=== PATIENT | male | born 1955 | race Caucasian/White ===

== ENCOUNTER 2021-03-25 10:16 | Emergency (ER) | payer MEDICARE, OTHER ==
[2021-03-25] MEDS: Nitroglycerin 0.4 MG Tab.SL SL ONE ×3 (10:30→10:49)
[2021-03-25] MEDS ORDERED: Sodium Chloride 0.9% 10 ML Syringe FLUSH PRN (10:33)
[2021-03-25] MEDS ORDERED: Aspirin 81 MG Tab.Chew PO ONE (10:33)
--- NOTE | 2021-03-25 10:41 | EDM.PDOC ---
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 The nurse brought him to the ER. He reports that the chest pain started last night and has continued on and off. He now rates it a 8/10 and reports that it goes into the the left arm and left side of his chest. He also reports weighing himself last night and it being 201# and then this AM it was 206#. He did take Lasix and has bee voiding. Review of Systems - Review of Systems Review Of Systems: See Below Constitutional: Reports: No Symptoms Eyes: Reports: No Symptoms Ears: Reports: No Symptoms Nose: Reports: No Symptoms Mouth/Throat: Reports: No Symptoms Respiratory: Reports: Shortness of Breath Cardiovascular: Reports: Chest Pain GI/Abdominal: Reports: Nausea Genitourinary: Reports: No Symptoms Musculoskeletal: Reports: No Symptoms Skin: Reports: Diaphoresis Neurological: Reports: No Symptoms Psychiatric: Reports: No Symptoms ED EXAM, GENERAL - Physical Exam Exam: See Below General Appearance: Alert, WD/WN, No Apparent Distress (Elderly male) Eye Exam: Bilateral Eye: PERRL Ears: Normal External Exam, Hearing Grossly Normal Nose: Normal Inspection, Normal Mucosa Throat/Mouth: Normal Inspection, Normal Lips, Normal Voice Head: Atraumatic, Normocephalic Neck: Normal Inspection, Supple Respiratory/Chest: No Respiratory Distress, Lungs Clear, Chest Non-Tender Cardiovascular: Normal Peripheral Pulses, Regular Rate, Rhythm GI/Abdominal: Normal Bowel Sounds, Soft, Non-Tender (Male) Exam: Deferred Rectal (Males) Exam: Deferred Back Exam: Normal Inspection Extremities: Normal Inspection, Normal Range of Motion, No Pedal Edema, Normal Capillary Refill Neurological: Alert, Oriented, CN II-XII Intact, Normal Cognition Psychiatric: Normal Affect Skin Exam: Warm, Intact, Normal Color, Diaphoretic Lymphatic: No Adenopathy #1 Interpretation EKG Date: 03/25/21 Time: 10:16 Rhythm: NSR Rate (Beats/Min): 98 [place]: Normal P-Wave: Present QRS: Normal ST-T: Normal QT: Normal Comparison: NA - No Prior EKG EKG Interpretation Comments: Minimal ST elevation in V2,V3, no depression Course - Vital Signs Text/Narrative:: 1029 The patient was seen by the SUB MASTER. EKG done. He was given Nitro 0.4mg SL and ASA 324mg po. Labs and CXR ordered. 1115 Has now had 3 doses of Nitro SL and pain is returning to about a level 4. Morphine 1mg IVP given. Nitro gtt ordered. 1116 [facility] contacted and case presented. Dr Beckwith in the ER accepted the patient for transport. Nitro gtt and Heparin gtts started. Plan [facility] to transfer to [place]. Patient reporting 2-3 pain at this time, attempting to get him comfortable with Nitro gtt and Morphine Left with [facility] in stable but guarded condition. Last Recorded V/S: Last Vital Signs Temp Pulse Resp BP 117/76 03/25/21 10:49 Pulse Ox - Orders/Labs/Meds Orders: Active Orders 24 hr Category Date Time Status EKG Documentation Completion [RC] STAT Care 03/25/21 10:32 Active PTT,PARTIAL THROMBOPLSTIN TIME [COAG] Q6H Lab 03/25/21 11:30 Ordered PTT,PARTIAL THROMBOPLSTIN TIME [COAG] Q6H Lab 03/25/21 17:30 Ordered PTT,PARTIAL THROMBOPLSTIN TIME [COAG] Q6H Lab 03/25/21 23:30 Ordered PTT,PARTIAL THROMBOPLSTIN TIME [COAG] Q6H Lab 03/26/21 05:30 Ordered PTT,PARTIAL THROMBOPLSTIN TIME [COAG] Q6H Lab 03/26/21 11:30 Ordered PTT,PARTIAL THROMBOPLSTIN TIME [COAG] Q6H Lab 03/26/21 17:30 Ordered PTT,PARTIAL THROMBOPLSTIN TIME [COAG] Q6H Lab 03/26/21 23:30 Ordered REFLEX LACTIC ACID YES OR NO [CHEM] Routine Lab 03/25/21 11:07 Received UA RFX MOLLY AND CULT IF INDIC [URIN] Stat Lab 03/25/21 10:33 Ordered Heparin Sodium/0.45% NaCl [Heparin 25,000 Units in 1/2 Med 03/25/21 11:30 Ordered NS 500 ML] 25,000 units in 500 ml IV TITRATE Nitroglycerin 25 MG in D5W @ 10 MCG/MIN (250ml) Premix Med 03/25/21 11:45 Ordered Nitroglycerin/D5W [Nitroglycerin 25 MG/D5W 250 ML] 25 mg in 250 ml IV TITRATE Sodium Chloride 0.9% [Saline Flush] Med 03/25/21 10:33 Active 10 ml FLUSH ASDIRECTED PRN Saline Lock Insert [OM.PC] Stat Oth 03/25/21 10:32 Ordered Medication Orders Heparin Sodium/Sodium Chloride (Heparin 25,000 Units In 1/2 Ns 500 Ml) 25,000 units in 500 mls @ 100 mls/hr IV TITRATE NICK; Protocol Last Admin: 03/25/21 11:38 Dose: 5,000 units/hr, 100 mls/hr Documented by: Nitroglycerin/Dextrose (Nitroglycerin 25 Mg/D5w 250 Ml) 25 mg in 250 mls @ 6 mls/hr IV TITRATE NICK; Protocol Sodium Chloride (Sodium Chloride 0.9% 10 Ml Syringe) 10 ml FLUSH ASDIRECTED PRN PRN Reason: Keep Vein Open Labs: Laboratory Tests 03/25/21 03/25/21 03/25/21 Range/Units 10:39 10:39 10:39 WBC 5.4 (4.0-10.0) x10^3/uL RBC 4.55 (4.5-6.0) x10^6/uL Hgb 14.4 (14.0-18.0) g/dL Hct 40.4 (40.0-52.0) % MCV 88.8 (78.0-93.0) fL MCH 31.6 (26.0-32.0) pg MCHC 35.6 (32.0-36.0) g/dL RDW Coeff of Barry 13.0 (10.0-15.0) % Plt Count 199 (130-400) x10^3/uL Neut % (Auto) 58.3 (50.0-80.0) % Lymph % (Auto) 26.5 (25.0-50.0) % [place] % (Auto) 11.2 H (2.0-11.0) % Eos % (Auto) 3.6 (0.0-4.0) % Baso % (Auto) 0.4 (0.2-1.2) % PT 11.0 (9.9-12.5) SEC INR 1.0 L (2.0-3.5) APTT 26.3 (25.6-32.8) SEC D-Dimer, Quantitative (<=0.58) mg/LFEU Sodium 135 L (136-145) mmol/L Potassium 3.9 (3.5-5.1) mmol/L Chloride 100 (98-107) mmol/L Carbon Dioxide 24 (21-32) mmol/L Anion Gap 14.9 (5-15) mmol/L BUN 18 (7-18) mg/dL Creatinine 1.2 (0.70-1.30) mg/dL Est Cr Clr Drug Dosing TNP Estimated GFR (MDRD) > 60 Glucose 232 H (70-99) mg/dL Lactic Acid (0.4-2.0) mmol/L Calcium 8.6 (8.5-10.1) mg/dL Corrected Calcium 8.8 (8.5-10.1) mg/dL Total Bilirubin 0.5 (0.2-1.0) mg/dL AST 65 H (15-37) U/L ALT 64 H (16-63) U/L Alkaline Phosphatase 131 H (46-116) U/L Troponin I High Sens 131 H* (<=76) ng/L C-Reactive Protein < 0.2 (<=0.9) mg/dL NT-Pro-B Natriuret Pep 186 H (<=125) pg/mL Total Protein 8.0 (6.4-8.2) g/dL Albumin 3.7 (3.4-5.0) g/dL Globulin 4.3 Albumin/Globulin Ratio 0.86 03/25/21 03/25/21 Range/Units 10:39 10:39 WBC (4.0-10.0) x10^3/uL RBC (4.5-6.0) x10^6/uL Hgb (14.0-18.0) g/dL Hct (40.0-52.0) % MCV (78.0-93.0) fL MCH (26.0-32.0) pg MCHC (32.0-36.0) g/dL RDW Coeff of [place] (10.0-15.0) % Plt Count (130-400) x10^3/uL Neut % (Auto) (50.0-80.0) % Lymph % (Auto) (25.0-50.0) % [place] % (Auto) (2.0-11.0) % Eos % (Auto) (0.0-4.0) % Baso % (Auto) (0.2-1.2) % PT (9.9-12.5) SEC INR (2.0-3.5) APTT (25.6-32.8) SEC D-Dimer, Quantitative 0.35 (<=0.58) mg/LFEU Sodium (136-145) mmol/L Potassium (3.5-5.1) mmol/L Chloride (98-107) mmol/L Carbon Dioxide (21-32) mmol/L Anion Gap (5-15) mmol/L BUN (7-18) mg/dL Creatinine (0.70-1.30) mg/dL Est Cr Clr Drug Dosing Estimated GFR (MDRD) Glucose (70-99) mg/dL Lactic Acid 3.9 H* (0.4-2.0) mmol/L Calcium (8.5-10.1) mg/dL Corrected Calcium (8.5-10.1) mg/dL Total Bilirubin (0.2-1.0) mg/dL AST (15-37) U/L ALT (16-63) U/L Alkaline Phosphatase (46-116) U/L Troponin I High Sens (<=76) ng/L C-Reactive Protein (<=0.9) mg/dL NT-Pro-B Natriuret Pep (<=125) pg/mL Total Protein (6.4-8.2) g/dL Albumin (3.4-5.0) g/dL Globulin Albumin/Globulin Ratio Meds: Medications Generic Name Dose Route Start Last Admin Trade Name Freq PRN Reason Stop Dose Admin Heparin Sodium/Sodium Chloride 25,000 units in 500 mls @ 100 mls/hr 03/25/21 11:30 03/25/21 11:38 Heparin 25,000 Units In 1/2 Ns 500 Ml IV 5,000 units/hr TITRATE NICK 100 mls/hr Administration Protocol 5,000 UNITS/HR Nitroglycerin/Dextrose 25 mg in 250 mls @ 6 mls/hr 03/25/21 11:45 Nitroglycerin 25 Mg/D5w 250 Ml IV TITRATE NICK Protocol 10 MCG/MIN Sodium Chloride 10 ml 03/25/21 10:33 Sodium Chloride 0.9% 10 Ml Syringe FLUSH ASDIRECTED PRN Keep Vein Open Discontinued Medications Generic Name Dose Route Start Last Admin Trade Name Freq PRN Reason Stop Dose Admin Aspirin 324 mg 03/25/21 10:33 03/25/21 10:29 Aspirin 81 Mg Tab.Chew PO 03/25/21 10:34 324 mg ONETIME ONE Administration Heparin Sodium (Porcine) 5,000 units 03/25/21 11:24 03/25/21 11:37 Heparin Sodium 5,000 Units/Ml Vial IVPUSH 03/25/21 11:25 5,000 units .BOLUS ONE Administration Sodium Chloride 500 mls @ 999 mls/hr 03/25/21 11:02 03/25/21 11:15 Normal Saline IV 03/25/21 11:32 999 mls/hr ONETIME ONE Administration Morphine Sulfate 1 mg 03/25/21 11:06 03/25/21 11:12 Morphine 2 Mg/Ml Syringe IVPUSH 03/25/21 11:07 1 mg ONETIME ONE Administration Nitroglycerin 0.4 mg 03/25/21 10:33 03/25/21 10:49 Nitroglycerin 0.4 Mg Tab.Sl SL 03/25/21 10:34 0.4 mg ONETIME ONE Administration - Radiology Interpretation Free Text/Narrative:: XR Chest 1V=note cardiomegaly with an AICD (See final report) Departure - Departure Time of Disposition: 11:31 Disposition: DC/Tfer to Acute Hospital 02 Condition: Good Clinical Impression: NSTEMI (non-ST elevated myocardial infarction) Acute [place] Qualifiers: Myocardial infarction type: unspecified Involved coronary artery: unspecified coronary artery Qualified Code(s): I21.9 - Acute myocardial infarction, unspecified CHF (congestive heart failure) Qualifiers: Heart failure type: unspecified Heart failure chronicity: unspecified Qualified Code(s): I50.9 - Heart failure, unspecified Type 2 diabetes mellitus Qualifiers: Diabetes mellitus termite treater helper insulin use: without termite treater helper use Diabetes mellitus complication status: without complication Qualified Code(s): E11.9 - Type 2 diabetes mellitus without complications - Discharge Information Forms: Interfacility Transfer [facility] Sepsis Event Note (ED) - Focused Exam Vital Signs: Vital Signs BP 03/25/21 10:49 117/76 03/25/21 10:41 121/75 03/25/21 10:30 141/92 H - My Orders Last 24 Hours: My Active Orders 03/25/21 10:32 EKG Documentation Completion [RC] STAT Saline Lock Insert [OM.PC] Stat 03/25/21 10:33 UA RFX MOLLY AND CULT IF INDIC [URIN] Stat Sodium Chloride 0.9% [Saline Flush] 10 ml FLUSH ASDIRECTED PRN 03/25/21 11:07 REFLEX LACTIC ACID YES OR NO [CHEM] Routine 03/25/21 11:30 PTT,PARTIAL THROMBOPLSTIN TIME [COAG] Q6H Heparin Sodium/0.45% NaCl [Heparin 25,000 Units in 1/2 NS 500 ML] 25,000 units in 500 ml IV TITRATE 03/25/21 11:45 Nitroglycerin 25 MG in D5W @ 10 MCG/MIN (250ml) Premix Nitroglycerin/D5W [Nitroglycerin 25 MG/D5W 250 ML] 25 mg in 250 ml IV TITRATE 03/25/21 17:30 PTT,PARTIAL THROMBOPLSTIN TIME [COAG] Q6H 03/25/21 23:30 PTT,PARTIAL THROMBOPLSTIN TIME [COAG] Q6H 03/26/21 05:30 PTT,PARTIAL THROMBOPLSTIN TIME [COAG] Q6H 03/26/21 11:30 PTT,PARTIAL THROMBOPLSTIN TIME [COAG] Q6H 03/26/21 17:30 PTT,PARTIAL THROMBOPLSTIN TIME [COAG] Q6H 03/26/21 23:30 PTT,PARTIAL THROMBOPLSTIN TIME [COAG] Q6H - Assessment/Plan Last 24 Hours: My Active Orders 03/25/21 10:32 EKG Documentation Completion [RC] STAT Saline Lock Insert [OM.PC] Stat 03/25/21 10:33 UA RFX MOLLY AND CULT IF INDIC [URIN] Stat Sodium Chloride 0.9% [Saline Flush] 10 ml FLUSH ASDIRECTED PRN 03/25/21 11:07 REFLEX LACTIC ACID YES OR NO [CHEM] Routine 03/25/21 11:30 PTT,PARTIAL THROMBOPLSTIN TIME [COAG] Q6H Heparin Sodium/0.45% NaCl [Heparin 25,000 Units in 1/2 NS 500 ML] 25,000 units in 500 ml IV TITRATE 03/25/21 11:45 Nitroglycerin 25 MG in D5W @ 10 MCG/MIN (250ml) Premix Nitroglycerin/D5W [Nitroglycerin 25 MG/D5W 250 ML] 25 mg in 250 ml IV TITRATE 03/25/21 17:30 PTT,PARTIAL THROMBOPLSTIN TIME [COAG] Q6H 03/25/21 23:30 PTT,PARTIAL THROMBOPLSTIN TIME [COAG] Q6H 03/26/21 05:30 PTT,PARTIAL THROMBOPLSTIN TIME [COAG] Q6H 03/26/21 11:30 PTT,PARTIAL THROMBOPLSTIN TIME [COAG] Q6H 03/26/21 17:30 PTT,PARTIAL THROMBOPLSTIN TIME [COAG] Q6H 03/26/21 23:30 PTT,PARTIAL THROMBOPLSTIN TIME [COAG] Q6H Assessment:: 1)NSTEMI/Acute [place] 2)Chest Pain 3)Hx Type 2 DM 4)Hx CHF Plan: -Transfer to [facility] via [facility]
[2021-03-25] MEDS ORDERED: Sodium Chloride 0.9% 500 ML IV ONE (11:02)
[2021-03-25] MEDS ORDERED: Morphine 2 MG/ML SYRINGE IVPUSH ONE (11:06)
[2021-03-25 11:11] LABS: CHLORIDE,CL 100 mmol/L (98-107); PTT,PARTIAL THROMBOPLSTIN TIME 26.3 SEC (25.6-32.8); SODIUM,NA 135 mmol/L (136-145)
[2021-03-25 11:12] LABS: ANION GAP 14.9 mmol/L (5-15)
--- NOTE | 2021-03-25 11:14 | CR ---
[id number] RAD/RAD Chest PA or AP 1V EXAM: FRONTAL CHEST INDICATION: CHEST PAIN. COMPARISON: June 21, 2010. DISCUSSION: The heart is mildly enlarged with borderline central vascular congestion. Left subclavian approach pacemaker/ICD lead tip right ventricle. No effusions. IMPRESSION: 1. Cardiomegaly with early central vascular congestion. Ulices Miller MD 03/25/21 1111 Thank you for allowing us to participate in the care of your patient.
[2021-03-25] MEDS ORDERED: Heparin Sodium 5,000 Units/ML Vial IVPUSH ONE (11:24)
[2021-03-25] MEDS ORDERED: Heparin Sodium/0.45% NaCl 25,000 UNITS/500 ML BAG IV SCH (11:30)
[2021-03-25] MEDS ORDERED: Nitroglycerin/D5W 25 MG/250 ML BOTTLE IV SCH (11:45)
== END 2021-03-25 11:54 | disposition short-term general hospital (02) ==
LOC: VM.ED 10:16
DX: I21.9 Acute myocardial infarction, unspecified (principal); I21.4 Non-ST elevation (NSTEMI) myocardial infarction; I11.0 Hypertensive heart disease with heart failure; I50.9 Heart failure, unspecified; E11.9 Type 2 diabetes mellitus without complications
CPT/HCPCS: 36415; 71045; 80053; 83605; 83880; 84484; 85025; 85379; 85610; 85730; 86140; 93005; 93010; 96374; 96375; 99284; 99285-25; A9270-GY; J1644; J2270; J3490; J7030

== ENCOUNTER 2021-05-02 07:16 | Emergency (ER) | payer MEDICARE, OTHER ==
[2021-05-02] MEDS ORDERED: Sodium Chloride 0.9% 10 ML Syringe FLUSH PRN (07:29)
[2021-05-02] MEDS ORDERED: Aspirin 81 MG Tab.Chew PO ONE (07:30)
[2021-05-02] MEDS: Nitroglycerin 0.4 MG Tab.SL SL PRN ×2 (07:31→07:52)
--- NOTE | 2021-05-02 07:54 | EDM.PDOC ---
ED HPI GENERAL MEDICAL PROBLEM - General Stated Complaint: CHEST PAIN Time Seen by Provider: 05/02/21 07:20 Source of Information: Reports: Patient History Limitations: Reports: No Limitations - History of Present Illness INITIAL COMMENTS - FREE TEXT/NARRATIVE: Patient comes emergency department today from work which is here at the hospital with concerns of chest pain. Patient has a history of angina coronary vasospasms. He has had multiple angiograms but never received any stents. He has a history of congestive heart failure as well. About a month ago he was seen in the emergency department for very similar symptoms and was sent to [place] had an angiogram where he had a balloon angioplasty but did not have any stents placed. This morning about 3:00 he was awoken at home with chest pains down his left arm. He was short of breath and diaphoretic at that time. He took 1 sublingual nitro and it resolved his pain. He then got in the car and started to drive to work. About 5:[address] work he developed shortness of breath chest pain down his left arm. It is constant. He did take his baby aspirin this morning. He complains of shortness of breath. His pain is there constantly whether he is physically exerting himself or sitting still. He is nauseated without vomiting. Small amount of diaphoresis. No abdominal pain. No hematuria dysuria urinary frequency. No black or tarry stools. Middle Chest Pain Score (Numeric/FACES): 8 - Related Data Allergies Allergy/AdvReac Type Severity Reaction Status Date / Time isosorbide Allergy Headache Verified 05/02/21 09:19 kanamycin Allergy Cannot Verified 05/02/21 09:19 Remember Home Meds: Home Meds Acetaminophen [Acetaminophen ER] 1,300 mg PO Q6H PRN 03/25/21 [History] Aspirin [Halfprin] 81 mg PO DAILY 03/25/21 [History] Doxycycline Monohydrate 100 mg PO BID 03/25/21 [History] Fluticasone Propionate [Flonase Allergy Relief] 2 spray NS DAILY 03/25/21 [History] Furosemide [Lasix] 40 mg PO DAILY 03/25/21 [History] Lactobacill 46/B.animal/Inulin [Probiotic-10 10 Bill Cell Cap] 3 each PO DAILY 03/25/21 [History] Magnesium Chloride [Mag Delay] 128 mg PO DAILY 03/25/21 [History] Multivitamin 1 each PO DAILY 03/25/21 [History] Nitroglycerin 0.4 mg SL ASDIRECTED 03/25/21 [History] Pantoprazole Sodium [Protonix] 40 mg PO DAILY 03/25/21 [History] Sacubitril/Valsartan [Entresto 24 mg-26 mg Tablet] 1 each PO BID 03/25/21 [History] Spironolactone [Aldactone] 25 mg PO DAILY 03/25/21 [History] atorvaSTATin Calcium [Lipitor] 40 mg PO BEDTIME 03/25/21 [History] carvediloL [Coreg] 25 mg PO BID 03/25/21 [History] metFORMIN [Glucophage XR] 750 mg PO BID 03/25/21 [History] Melatonin 10 mg PO BEDTIME 05/02/21 [History] Mirtazapine [Remeron] 15 mg PO DAILY 05/02/21 [History] amLODIPine Besylate [Norvasc] 2.5 mg PO DAILY 05/02/21 [History] Past Medical History HEENT History: Reports: Other (See Below) Other HEENT History: barretts esophagus, Cardiovascular History: Reports: CAD, Cardiomyopathy, Heart Failure, Hyperten jonas Gastrointestinal History: Reports: Other (See Below) Other Gastrointestinal History: barretts esophagus, pharyngoesophageal dysphasia, Musculoskeletal History: Reports: Other (See Below) Other Musculoskeletal History: PTSD Endocrine/Metabolic History: Reports: Diabetes, Type II Social & Family History - Family History Family Medical History: Unobtainable - Caffeine Use Caffeine Use: Reports: None ED ROS GENERAL - Review of Systems Review Of Systems: Comprehensive ROS is negative, except as noted in HPI. ED EXAM, GENERAL - Physical Exam Exam: See Below Exam Limited By: No Limitations General Appearance: Alert, WD/WN, No Apparent Distress Eye Exam: Bilateral Eye: EOMI, PERRL Ears: Normal External Exam, Normal TMs Nose: Normal Inspection Throat/Mouth: Normal Inspection Head: Atraumatic, Normocephalic Neck: Normal Inspection, Supple, Non-Tender, Full Range of Motion Respiratory/Chest: No Respiratory Distress, Lungs Clear, Normal Breath Sounds, No Accessory Muscle Use, Chest Non-Tender Cardiovascular: Normal Peripheral Pulses, Regular Rate, Rhythm GI/Abdominal: Normal Bowel Sounds, Soft, Non-Tender (Male) Exam: Deferred Rectal (Males) Exam: Deferred Back Exam: Normal Inspection, Full Range of Motion Extremities: Normal Inspection, Normal Range of Motion, No Pedal Edema, Normal Capillary Refill Neurological: Alert, Oriented, Normal Cognition, No Motor/Sensory Deficits Psychiatric: Normal Affect, Normal Mood Skin Exam: Warm, Dry, Intact, Normal Color, No Rash Lymphatic: No Adenopathy Course - Vital Signs Last Recorded V/S: Last Vital Signs Temp 98.2 F 05/02/21 07:16 Pulse 85 05/02/21 14:06 Resp 25 H 05/02/21 14:06 BP 119/77 05/02/21 14:06 Pulse Ox 95 05/02/21 14:06 - Orders/Labs/Meds Orders: Active Orders 24 hr Category Date Time Status Heparin Sodium/0.45% NaCl [Heparin 25,000 Units in 1/2 Med 05/02/21 08:30 Active NS 500 ML] 25,000 units in 500 ml IV TITRATE Nitroglycerin [Nitrostat] Med 05/02/21 07:31 Active 0.4 mg SL Q5M PRN Nitroglycerin/D5W [Nitroglycerin 25 MG/D5W 250 ML] Med 05/02/21 08:30 Active 25 mg in 250 ml IV TITRATE Sodium Chloride 0.9% [Saline Flush] Med 05/02/21 07:29 Active 10 ml FLUSH ASDIRECTED PRN Peripheral IV Insertion Adult [OM.PC] Stat Oth 05/02/21 07:29 Ordered Medication Orders Heparin Sodium/Sodium Chloride (Heparin 25,000 Units In 1/2 Ns 500 Ml) 25,000 units in 500 mls @ 20 mls/hr IV TITRATE NICK; Protocol Last Admin: 05/02/21 08:35 Dose: 1,000 units/hr, 20 mls/hr Documented by: NICKIE Cosigned by: TIEDNAT Nitroglycerin/Dextrose (Nitroglycerin 25 Mg/D5w 250 Ml) 25 mg in 250 mls @ 6 mls/hr IV TITRATE NICK; Protocol Nitroglycerin (Nitroglycerin 0.4 Mg Tab.Sl) 0.4 mg SL Q5M PRN PRN Reason: Chest Pain Last Admin: 05/02/21 07:52 Dose: 0.4 mg Documented by: Admin: 05/02/21 07:31 Dose: 0.4 mg Documented by: NICKIE Sodium Chloride (Sodium Chloride 0.9% 10 Ml Syringe) 10 ml FLUSH ASDIRECTED PRN PRN Reason: Keep Vein Open Labs: Laboratory Tests 05/02/21 05/02/21 05/02/21 Range/Units 07:46 07:46 07:46 WBC 4.9 (4.0-10.0) x10^3/uL RBC 4.49 L (4.5-6.0) x10^6/uL Hgb 14.0 (14.0-18.0) g/dL Hct 39.1 L (40.0-52.0) % MCV 87.1 (78.0-93.0) fL MCH 31.2 (26.0-32.0) pg MCHC 35.8 (32.0-36.0) g/dL RDW Coeff of Barry 12.8 (10.0-15.0) % Plt Count 198 (130-400) x10^3/uL Immature Gran % (Auto) 0.20 (0.00-0.43) % Neut % (Auto) 49.7 L (50.0-80.0) % Lymph % (Auto) 32.2 (25.0-50.0) % [place] % (Auto) 13.2 H (2.0-11.0) % Eos % (Auto) 4.3 H (0.0-4.0) % Baso % (Auto) 0.4 (0.2-1.2) % Neut # (Auto) 2.4 (1.8-7.7) x10^3/uL Lymph # (Auto) 1.6 (1.0-4.8) x10^3/uL [place] # (Auto) 0.6 (0.0-0.8) x10^3/uL Eos # (Auto) 0.2 (0.0-0.5) x10^3/uL Baso # (Auto) 0.0 (0.0-0.2) x10^3/uL Immature Gran # (Auto) 0.01 (0.00-0.07) x10^3/uL PT 11.1 (9.9-12.5) SEC INR 1.0 L (2.0-3.5) APTT 26.7 (25.6-32.8) SEC Sodium 134 L (136-145) mmol/L Potassium 4.1 (3.5-5.1) mmol/L Chloride 100 (98-107) mmol/L Carbon Dioxide 25 (21-32) mmol/L Anion Gap 13.1 (5-15) mmol/L BUN 13 (7-18) mg/dL Creatinine 1.0 (0.70-1.30) mg/dL Est Cr Clr Drug Dosing TNP Estimated GFR (MDRD) > 60 Glucose 249 H (70-99) mg/dL Calcium 9.0 (8.5-10.1) mg/dL Corrected Calcium 9.4 (8.5-10.1) mg/dL Total Bilirubin 0.6 (0.2-1.0) mg/dL AST 57 H (15-37) U/L ALT 70 H (16-63) U/L Alkaline Phosphatase 130 H (46-116) U/L Troponin I High Sens 122 H* (<=76) ng/L C-Reactive Protein 0.5 (<=0.9) mg/dL NT-Pro-B Natriuret Pep 74 (<=125) pg/mL Total Protein 6.9 (6.4-8.2) g/dL Albumin 3.5 (3.4-5.0) g/dL Globulin 3.4 Albumin/Globulin Ratio 1.03 Urine Color (YELLOW) Urine Appearance (CLEAR) Urine pH (5.0-8.0) Ur Specific [place] Urine Protein (NEGATIVE) mg/dL Urine Glucose (UA) (NEGATIVE) mg/dL Urine Ketones (NEGATIVE) mg/dL Urine Occult Blood (NEGATIVE) Urine Nitrite (NEGATIVE) Urine Bilirubin (NEGATIVE) Urine Urobilinogen (0.2) EU/dL Ur Leukocyte Esterase (NEGATIVE) 05/02/21 05/02/21 05/02/21 Range/Units 08:02 09:55 13:33 WBC (4.0-10.0) x10^3/uL RBC (4.5-6.0) x10^6/uL Hgb (14.0-18.0) g/dL Hct (40.0-52.0) % MCV (78.0-93.0) fL MCH (26.0-32.0) pg MCHC (32.0-36.0) g/dL RDW Coeff of Barry (10.0-15.0) % Plt Count (130-400) x10^3/uL Immature Gran % (Auto) (0.00-0.43) % Neut % (Auto) (50.0-80.0) % Lymph % (Auto) (25.0-50.0) % [place] % (Auto) (2.0-11.0) % Eos % (Auto) (0.0-4.0) % Baso % (Auto) (0.2-1.2) % Neut # (Auto) (1.8-7.7) x10^3/uL Lymph # (Auto) (1.0-4.8) x10^3/uL [place] # (Auto) (0.0-0.8) x10^3/uL Eos # (Auto) (0.0-0.5) x10^3/uL Baso # (Auto) (0.0-0.2) x10^3/uL Immature Gran # (Auto) (0.00-0.07) x10^3/uL PT (9.9-12.5) SEC INR (2.0-3.5) APTT (25.6-32.8) SEC Sodium (136-145) mmol/L Potassium (3.5-5.1) mmol/L Chloride (98-107) mmol/L Carbon Dioxide (21-32) mmol/L Anion Gap (5-15) mmol/L BUN (7-18) mg/dL Creatinine (0.70-1.30) mg/dL Est Cr Clr Drug Dosing Estimated GFR (MDRD) Glucose (70-99) mg/dL Calcium (8.5-10.1) mg/dL Corrected Calcium (8.5-10.1) mg/dL Total Bilirubin (0.2-1.0) mg/dL AST (15-37) U/L ALT (16-63) U/L Alkaline Phosphatase (46-116) U/L Troponin I High Sens 118 H* 105 H* (<=76) ng/L C-Reactive Protein (<=0.9) mg/dL NT-Pro-B Natriuret Pep (<=125) pg/mL Total Protein (6.4-8.2) g/dL Albumin (3.4-5.0) g/dL Globulin Albumin/Globulin Ratio Urine Color Dark yellow H (YELLOW) Urine Appearance Clear (CLEAR) Urine pH 6.0 (5.0-8.0) Ur Specific [place] 1.025 Urine Protein Negative (NEGATIVE) mg/dL Urine Glucose (UA) 500 H (NEGATIVE) mg/dL Urine Ketones Negative (NEGATIVE) mg/dL Urine Occult Blood Negative (NEGATIVE) Urine Nitrite Negative (NEGATIVE) Urine Bilirubin Negative (NEGATIVE) Urine Urobilinogen 0.2 (0.2) EU/dL Ur Leukocyte Esterase Negative (NEGATIVE) 05/02/21 Range/Units 13:33 WBC (4.0-10.0) x10^3/uL RBC (4.5-6.0) x10^6/uL Hgb (14.0-18.0) g/dL Hct (40.0-52.0) % MCV (78.0-93.0) fL MCH (26.0-32.0) pg MCHC (32.0-36.0) g/dL RDW Coeff of [place] (10.0-15.0) % Plt Count (130-400) x10^3/uL Immature Gran % (Auto) (0.00-0.43) % Neut % (Auto) (50.0-80.0) % Lymph % (Auto) (25.0-50.0) % [place] % (Auto) (2.0-11.0) % Eos % (Auto) (0.0-4.0) % Baso % (Auto) (0.2-1.2) % Neut # (Auto) (1.8-7.7) x10^3/uL Lymph # (Auto) (1.0-4.8) x10^3/uL [place] # (Auto) (0.0-0.8) x10^3/uL Eos # (Auto) (0.0-0.5) x10^3/uL Baso # (Auto) (0.0-0.2) x10^3/uL Immature Gran # (Auto) (0.00-0.07) x10^3/uL PT (9.9-12.5) SEC INR (2.0-3.5) APTT 43.7 H (25.6-32.8) SEC Sodium (136-145) mmol/L Potassium (3.5-5.1) mmol/L Chloride (98-107) mmol/L Carbon Dioxide (21-32) mmol/L Anion Gap (5-15) mmol/L BUN (7-18) mg/dL Creatinine (0.70-1.30) mg/dL Est Cr Clr Drug Dosing Estimated GFR (MDRD) Glucose (70-99) mg/dL Calcium (8.5-10.1) mg/dL Corrected Calcium (8.5-10.1) mg/dL Total Bilirubin (0.2-1.0) mg/dL AST (15-37) U/L ALT (16-63) U/L Alkaline Phosphatase (46-116) U/L Troponin I High Sens (<=76) ng/L C-Reactive Protein (<=0.9) mg/dL NT-Pro-B Natriuret Pep (<=125) pg/mL Total Protein (6.4-8.2) g/dL Albumin (3.4-5.0) g/dL Globulin Albumin/Globulin Ratio Urine Color (YELLOW) Urine Appearance (CLEAR) Urine pH (5.0-8.0) Ur Specific [place] Urine Protein (NEGATIVE) mg/dL Urine Glucose (UA) (NEGATIVE) mg/dL Urine Ketones (NEGATIVE) mg/dL Urine Occult Blood (NEGATIVE) Urine Nitrite (NEGATIVE) Urine Bilirubin (NEGATIVE) Urine Urobilinogen (0.2) EU/dL Ur Leukocyte Esterase (NEGATIVE) Meds: Medications Generic Name Dose Route Start Last Admin Trade Name Freq PRN Reason Stop Dose Admin Heparin Sodium/Sodium Chloride 25,000 units in 500 mls @ 20 mls/hr 05/02/21 08:30 05/02/21 08:35 Heparin 25,000 Units In 1/2 Ns 500 Ml IV 1,000 units/hr TITRATE NICK 20 mls/hr Administration Protocol 1,000 UNITS/HR Nitroglycerin/Dextrose 25 mg in 250 mls @ 6 mls/hr 05/02/21 08:30 Nitroglycerin 25 Mg/D5w 250 Ml IV TITRATE NICK Protocol 10 MCG/MIN Nitroglycerin 0.4 mg 05/02/21 07:31 05/02/21 07:52 Nitroglycerin 0.4 Mg Tab.Sl SL 0.4 mg Q5M PRN Administration Chest Pain Sodium Chloride 10 ml 05/02/21 07:29 Sodium Chloride 0.9% 10 Ml Syringe FLUSH ASDIRECTED PRN Keep Vein Open Discontinued Medications Generic Name Dose Route Start Last Admin Trade Name Tj PRN Reason Stop Dose Admin Aspirin 243 mg 05/02/21 07:30 05/02/21 07:21 Aspirin 81 Mg Tab.Chew PO 05/02/21 07:31 243 mg ONETIME ONE Administration Heparin Sodium (Porcine) 4,000 units 05/02/21 08:18 05/02/21 08:35 Heparin Sodium 5,000 Units/Ml Vial IVPUSH 05/02/21 08:19 4,000 units .BOLUS ONE Administration - Radiology Interpretation Free Text/Narrative:: Chest x-ray per radiology no infiltrate effusion pneumothorax or edema. No acute cardiopulmonary abnormality. - Re-Assessments/Exams Free Text/Narrative Re-Assessment/Exam: 05/02/21 07:50 IV established. Labs drawn. 3 baby aspirins to get to a total of 324. Nitro SL x 2 with complete resolution of his chest pain. His troponin is mildly elevated at 122. Mild elevation of his liver enzymes AST ALT and alk phos which is chronic glucose 249 sodium 134 normal coags. Patient was given heparin bolus of 4000 units and then started at 1000 units an hour. 0830 I called and spoke with Dr. Huff at [facility] in [place]. HPI ER COURSE findings and concerns were relayed to him. He agreed with the care so far and no new orders or guidance at this time. He accepted the patient at [facility] although there is currently no beds available and we will hold the patient until a bed opens up. I discussed my concerns with the patient of unstable angina and elevated troponin. He is still pain free. We will keep him here in the ED until a bed opens up at [facility] and transfer him at that time. If his pain returns we will start a nitro gtt. He is comfortable with this plan and his questions answered. 05/02/21 14:33 His troponin has trended down to 105. He has been on a heparin gtt and his PTT is 43 which is therapeutic. No more chest pain. I discussed his case with the hospitalist at [facility] again and they accepted the patient in transfer at this time. The patient is comfortable with this plan and his questions answered. Departure - Departure Time of Disposition: 08:30 Disposition: DC/Tfer to Acute Hospital 02 Reason for Transfer *Q: Other Clinical Impression: Unstable angina, Elevated troponin CAD (coronary artery disease) Qualifiers: Coronary Disease-Associated Artery/Lesion type: unspecified vessel or lesion type [place] vs. transplanted heart: unspecified whether [place] or transplanted heart Associated angina: with unstable angina Qualified Code(s): I25.110 - Atherosclerotic heart disease of [place] coronary artery with unstable angina pectoris Referrals: Javier Knight MD [Primary Care Provider] - Forms[facility] Seps[facility] Event Note (ED) - Focused Exam Vital Signs: Vital Signs Temp Pulse Resp BP BP Pulse Ox 05/02/21 14:06 85 25 H 119/77 95 05/02/21 13:41 17 119/75 95 05/02/21 09:06 91 12 109/69 95 05/02/21 08:46 96 19 118/75 96 05/02/21 08:26 93 27 H 114/75 95 05/02/21 08:06 98 28 H 101/60 98 05/02/21 07:57 112 H 21 H 95/62 97 05/02/21 07:52 119/73 05/02/21 07:37 100 18 119/73 95 05/02/21 07:31 143/94 H 05/02/21 07:16 98.2 F 96 23 H 143/94 H 98 - My Orders Last 24 Hours: My Active Orders 05/02/21 07:29 Sodium Chloride 0.9% [Saline Flush] 10 ml FLUSH ASDIRECTED PRN Peripheral IV Insertion Adult [OM.PC] Stat 05/02/21 07:31 Nitroglycerin [Nitrostat] 0.4 mg SL Q5M PRN 05/02/21 08:30 Heparin Sodium/0.45% NaCl [Heparin 25,000 Units in 1/2 NS 500 ML] 25,000 units in 500 ml IV TITRATE Nitroglycerin/D5W [Nitroglycerin 25 MG/D5W 250 ML] 25 mg in 250 ml IV TITRATE - Assessment/Plan Last 24 Hours: My Active Orders 05/02/21 07:29 Sodium Chloride 0.9% [Saline Flush] 10 ml FLUSH ASDIRECTED PRN Peripheral IV Insertion Adult [OM.PC] Stat 05/02/21 07:31 Nitroglycerin [Nitrostat] 0.4 mg SL Q5M PRN 05/02/21 08:30 Heparin Sodium/0.45% NaCl [Heparin 25,000 Units in 1/2 NS 500 ML] 25,000 units in 500 ml IV TITRATE Nitroglycerin/D5W [Nitroglycerin 25 MG/D5W 250 ML] 25 mg in 250 ml IV TITRATE
--- NOTE | 2021-05-02 07:55 | PCM.EKG ---
#1 Interpretation EKG Date: 05/02/21 Time: 07:18 Rhythm: NSR Rate (Beats/Min): 101 [place]: Normal P-Wave: Present QRS: Normal ST-T: Normal QT: Normal Comparison: No Change
--- NOTE | 2021-05-02 07:56 | CR ---
[id number] RAD/RAD Chest PA or AP 1V EXAM: RAD Chest PA or AP 1V INDICATION: CHEST PAIN, SHORTNESS OF BREATH. COMPARISON: March 25, 2021. DISCUSSION: Left chest wall cardiac conduction device. Cardiomediastinal silhouette is stable in size and contour. No infiltrate, effusion, pneumothorax, or edema. IMPRESSION: No acute cardiopulmonary abnormality. Carson Lindsay DO 05/02/21 0755 Thank you for allowing us to participate in the care of your patient.
[2021-05-02 08:08] LABS: PTT,PARTIAL THROMBOPLSTIN TIME 26.7 SEC (25.6-32.8)
[2021-05-02 08:16] LABS: CHLORIDE,CL 100 mmol/L (98-107); SODIUM,NA 134 mmol/L (136-145)
[2021-05-02 08:17] LABS: ANION GAP 13.1 mmol/L (5-15)
[2021-05-02] MEDS ORDERED: Heparin Sodium 5,000 Units/ML Vial IVPUSH ONE (08:18)
[2021-05-02] MEDS ORDERED: Nitroglycerin/D5W 25 MG/250 ML BOTTLE IV SCH (08:30)
[2021-05-02] MEDS ORDERED: Heparin Sodium/0.45% NaCl 25,000 UNITS/500 ML BAG IV SCH (08:30)
== END 2021-05-02 15:10 | disposition short-term general hospital (02) ==
LOC: VM.ED 07:16
DX: I25.110 Atherosclerotic heart disease of native coronary artery with unstable angina pectoris (principal); R79.89 Other specified abnormal findings of blood chemistry; I11.0 Hypertensive heart disease with heart failure; I50.9 Heart failure, unspecified; E11.9 Type 2 diabetes mellitus without complications; Z88.1 Allergy status to other antibiotic agents; Z88.8 Allergy status to other drugs, medicaments and biological substances; Z79.82 Long term (current) use of aspirin; Z79.84 Long term (current) use of oral hypoglycemic drugs; Z79.899 Other long term (current) drug therapy; Z20.822 Contact with and (suspected) exposure to COVID-19
CPT/HCPCS: 36415; 71045; 80053; 81003; 83880; 84484; 85025; 85610; 85730; 86140; 93005; 93010; 96365; 96366; 99284; 99285-25; A9270-GY; J1644; U0002

== ENCOUNTER 2022-09-04 10:02 | Emergency (ER) | payer OTHER, MEDICARE | END 2022-09-04 11:11 | disposition home or self-care (01) | LOC: VM.ED 10:02 | DX: S93.602A Unspecified sprain of left foot, initial encounter (principal); I25.10 Atherosclerotic heart disease of native coronary artery without angina pectoris; I11.0 Hypertensive heart disease with heart failure; I50.9 Heart failure, unspecified; E11.9 Type 2 diabetes mellitus without complications; Z88.1 Allergy status to other antibiotic agents; Z88.8 Allergy status to other drugs, medicaments and biological substances; Z79.82 Long term (current) use of aspirin; Z79.899 Other long term (current) drug therapy; Z79.84 Long term (current) use of oral hypoglycemic drugs; W10.9XXA Fall (on) (from) unspecified stairs and steps, initial encounter; Y93.01 Activity, walking, marching and hiking | CPT/HCPCS: 73630-LT; 99283 ==

== ENCOUNTER 2023-01-25 18:15 | Emergency (ER) | payer MEDICARE, OTHER ==
[2023-01-25] MEDS: Aspirin 81 MG Tab.Chew PO ONE (18:20)
[2023-01-25] MEDS ORDERED: Sodium Chloride 0.9% 10 ML Syringe FLUSH PRN (18:27)
[2023-01-25] MEDS: Nitroglycerin 0.4 MG Tab.SL SL ONE (18:36)
[2023-01-25 18:39] LABS: BASOPHILS PERCENT AUTO 0.3 % (0.2-1.2); EOSINOPHILS ABSOLUTE AUTO 0.1 x10^3/uL (0.0-0.5); EOSINOPHILS PERCENT AUTO 1.3 % (0.0-4.0); HEMATOCRIT 43.5 % (40.0-52.0); HEMOGLOBIN 15.4 g/dL (14.0-18.0); LYMPHOCYTES ABSOLUTE AUTO 1.8 x10^3/uL (1.0-4.8); LYMPHOCYTES PERCENT AUTO 22.8 % (25.0-50.0); MEAN CORPUSCULAR HEMOGLOBIN 30.9 pg (26.0-32.0); MEAN CORPUSCULAR HGB CONC 35.4 g/dL (32.0-36.0); MEAN CORPUSCULAR VOLUME 87.3 fL (78.0-93.0); MONOCYTES ABSOLUTE AUTO 0.8 x10^3/uL (0.0-0.8); MONOCYTES PERCENT AUTO 10.7 % (2.0-11.0); NEUTROPHILS ABSOLUTE AUTO 5.1 x10^3/uL (1.8-7.7); NEUTROPHILS PERCENT AUTO 64.9 % (50.0-80.0); PLATELET COUNT,PLT 250 x10^3/uL (130-400); RED BLOOD CELL COUNT 4.98 x10^6/uL (4.5-6.0); WHITE BLOOD CELL COUNT,WBC 7.8 x10^3/uL (4.0-10.0)
[2023-01-25 19:04] LABS: A/G RATIO 1.19; ALANINE AMINOTRANSFERASE,ALT 74 U/L (16-63); ALBUMIN 4.3 g/dL (3.4-5.0); ALKALINE PHOSPHATASE 91 U/L (46-116); ASPARTATE AMNIOTRANSFERASE,AST 50 U/L (15-37); BILIRUBIN TOTAL 0.4 mg/dL (0.2-1.0); BLOOD UREA NITROGEN,BUN 18 mg/dL (7-18); CARBON DIOXIDE,CO2 24 mmol/L (21-32); CHLORIDE,CL 106 mmol/L (98-107); CREATININE 1.1 mg/dL (0.70-1.30); GLUCOSE RANDOM 125 mg/dL (70-99); MAGNESIUM 1.6 mg/dL (1.8-2.4); PHOSPHORUS 3.3 mg/dL (2.6-4.7); POTASSIUM,K 3.8 mmol/L (3.5-5.1); PRO B-TYPE NATRIUR PEPT,BNPPRO 96 pg/mL (<=125); PROTEIN TOTAL,TP 7.9 g/dL (6.4-8.2); SODIUM,NA 140 mmol/L (136-145); TSH ULTRASENSITIVE 4.029 uIU/mL (0.358-3.74)
[2023-01-25 19:05] LABS: ANION GAP 13.8 mmol/L (5-15); ESTIMATED GFR 74 mL/min (>=60)
[2023-01-25 19:09] LABS: INR 1.1 (2.0-3.5); PROTHROMBIN TIME 11.4 SEC (9.5-12.2); PTT,PARTIAL THROMBOPLSTIN TIME 26.1 SEC (23.6-33.6)
[2023-01-25] MEDS ORDERED: Nitroglycerin/D5W 25 MG/250 ML BOTTLE IV SCH (19:15)
[2023-01-25] MEDS: Heparin Sodium 5,000 Units/ML Vial IVPUSH ONE (19:24)
[2023-01-25] MEDS: Heparin Sodium/0.45% NaCl 25,000 UNITS/500 ML BAG IV STA (19:50)
[2023-01-25] MEDS: Nitroglycerin/D5W 25 MG/250 ML BOTTLE IV STA (19:50)
[2023-01-25] MEDS: Morphine 4 MG/ML Syringe IVPUSH ONE (20:25)
== END 2023-01-25 21:05 | disposition short-term general hospital (02) ==
LOC: VM.ED 18:15
DX: I21.4 Non-ST elevation (NSTEMI) myocardial infarction (principal); I47.1 Supraventricular tachycardia; I25.10 Atherosclerotic heart disease of native coronary artery without angina pectoris; I11.0 Hypertensive heart disease with heart failure; I50.9 Heart failure, unspecified; E11.9 Type 2 diabetes mellitus without complications; Z88.8 Allergy status to other drugs, medicaments and biological substances; Z88.1 Allergy status to other antibiotic agents; Z79.82 Long term (current) use of aspirin; Z79.899 Other long term (current) drug therapy; Z79.84 Long term (current) use of oral hypoglycemic drugs
CPT/HCPCS: 71045; 80053; 83735; 83880; 84100; 84443; 84484; 85025; 85610; 85730; 93005; 93010; 96365; 96368; 96375; 96376; 99284; 99285-25; A9270-GY; J1644; J2270; J3490

== ENCOUNTER 2023-06-24 06:17 | Emergency (ER) | payer OTHER, MEDICARE | END 2023-06-24 07:35 | disposition home or self-care (01) | LOC: VM.ED 06:17 | DX: M54.50 Low back pain, unspecified (principal); M54.6 Pain in thoracic spine; M25.561 Pain in right knee; M25.562 Pain in left knee; M25.552 Pain in left hip; I25.10 Atherosclerotic heart disease of native coronary artery without angina pectoris; I11.0 Hypertensive heart disease with heart failure; I50.9 Heart failure, unspecified; E11.9 Type 2 diabetes mellitus without complications; Z88.1 Allergy status to other antibiotic agents; Z79.82 Long term (current) use of aspirin; Z79.899 Other long term (current) drug therapy; Z79.84 Long term (current) use of oral hypoglycemic drugs | CPT/HCPCS: 71101-LT; 72100; 99283 ==

== ENCOUNTER 2024-02-07 11:44 | Emergency (ER) | payer MEDICARE, OTHER ==
[2024-02-07] MEDS: Aspirin 81 MG Tab.Chew PO ONE (11:58)
[2024-02-07 12:02] LABS: BASOPHILS PERCENT AUTO 0.4 % (0.2-1.2); EOSINOPHILS ABSOLUTE AUTO 0.1 x10^3/uL (0.0-0.5); EOSINOPHILS PERCENT AUTO 1.2 % (0.0-4.0); HEMATOCRIT 43.3 % (40.0-52.0); HEMOGLOBIN 15.7 g/dL (14.0-18.0); IMMATURE GRAN ABSOLUTE AUTO 0.01 x10^3/uL (0.00-0.07); LYMPHOCYTES ABSOLUTE AUTO 1.7 x10^3/uL (1.0-4.8); LYMPHOCYTES PERCENT AUTO 21.4 % (25.0-50.0); MEAN CORPUSCULAR HEMOGLOBIN 31.6 pg (26.0-32.0); MEAN CORPUSCULAR HGB CONC 36.3 g/dL (32.0-36.0); MEAN CORPUSCULAR VOLUME 87.1 fL (78.0-93.0); MONOCYTES ABSOLUTE AUTO 0.8 x10^3/uL (0.0-0.8); MONOCYTES PERCENT AUTO 9.6 % (2.0-11.0); NEUTROPHILS ABSOLUTE AUTO 5.5 x10^3/uL (1.8-7.7); NEUTROPHILS PERCENT AUTO 67.3 % (50.0-80.0); PLATELET COUNT,PLT 283 x10^3/uL (130-400); RED BLOOD CELL COUNT 4.97 x10^6/uL (4.5-6.0); WHITE BLOOD CELL COUNT,WBC 8.1 x10^3/uL (4.0-10.0)
[2024-02-07] MEDS: Morphine 4 MG/ML Syringe IVPUSH ONE (12:14)
[2024-02-07 12:22] LABS: PROTHROMBIN TIME 10.4 SEC (8.9-11.5)
[2024-02-07 12:27] LABS: A/G RATIO 1.18; ALANINE AMINOTRANSFERASE,ALT 79 U/L (16-63); ALBUMIN 4.5 g/dL (3.4-5.0); ALKALINE PHOSPHATASE 100 U/L (46-116); ANION GAP 15.9 mmol/L (5-15); ASPARTATE AMNIOTRANSFERASE,AST 54 U/L (15-37); BILIRUBIN TOTAL 0.4 mg/dL (0.2-1.0); BLOOD UREA NITROGEN,BUN 13 mg/dL (7-18); CALCIUM 9.1 mg/dL (8.5-10.1); CARBON DIOXIDE,CO2 23 mmol/L (21-32); CHLORIDE,CL 102 mmol/L (98-107); CREATININE 1.1 mg/dL (0.70-1.30); ESTIMATED GFR 73 mL/min (>=60); GLUCOSE RANDOM 169 mg/dL (70-99); MAGNESIUM 1.4 mg/dL (1.8-2.4); POTASSIUM,K 3.9 mmol/L (3.5-5.1); PROTEIN TOTAL,TP 8.3 g/dL (6.4-8.2); SODIUM,NA 137 mmol/L (136-145)
[2024-02-07] MEDS: Nitroglycerin 0.4 MG Tab.SL SL PRN (12:29)
== END 2024-02-07 14:45 | disposition home or self-care (01) ==
LOC: VM.ED 11:44
DX: I25.119 Atherosclerotic heart disease of native coronary artery with unspecified angina pectoris (principal); I11.0 Hypertensive heart disease with heart failure; I50.9 Heart failure, unspecified; E11.9 Type 2 diabetes mellitus without complications; Z88.8 Allergy status to other drugs, medicaments and biological substances; Z88.1 Allergy status to other antibiotic agents; Z79.82 Long term (current) use of aspirin; Z79.890 Hormone replacement therapy
CPT/HCPCS: 36415; 71045; 80053; 83735; 84484; 85025; 85610; 85730; 93005; 93010; 96374; 99284; 99285-25; A9270-GY; J2270

== ENCOUNTER 2024-11-14 12:20 | Emergency (ER) | payer MEDICARE, OTHER ==
[2024-11-14] MEDS ORDERED: Sodium Chloride 0.9% 10 ML Syringe FLUSH PRN (12:27)
[2024-11-14] MEDS: Aspirin 81 MG Tab.Chew PO ONE (12:28)
[2024-11-14 12:35] LABS: BASOPHILS PERCENT AUTO 0.4 % (0.2-1.2); EOSINOPHILS ABSOLUTE AUTO 0.1 x10^3/uL (0.0-0.5); EOSINOPHILS PERCENT AUTO 1.8 % (0.0-4.0); HEMATOCRIT 46.3 % (40.0-52.0); HEMOGLOBIN 16.5 g/dL (14.0-18.0); IMMATURE GRAN ABSOLUTE AUTO 0.01 x10^3/uL (0.00-0.07); LYMPHOCYTES ABSOLUTE AUTO 1.9 x10^3/uL (1.0-4.8); LYMPHOCYTES PERCENT AUTO 24.9 % (25.0-50.0); MEAN CORPUSCULAR HEMOGLOBIN 31.3 pg (26.0-32.0); MEAN CORPUSCULAR HGB CONC 35.6 g/dL (32.0-36.0); MEAN CORPUSCULAR VOLUME 87.9 fL (78.0-93.0); MONOCYTES ABSOLUTE AUTO 0.8 x10^3/uL (0.0-0.8); MONOCYTES PERCENT AUTO 10.7 % (2.0-11.0); NEUTROPHILS ABSOLUTE AUTO 4.8 x10^3/uL (1.8-7.7); NEUTROPHILS PERCENT AUTO 62.1 % (50.0-80.0); PLATELET COUNT,PLT 331 x10^3/uL (130-400); RED BLOOD CELL COUNT 5.27 x10^6/uL (4.5-6.0); WHITE BLOOD CELL COUNT,WBC 7.7 x10^3/uL (4.0-10.0)
[2024-11-14] MEDS: Morphine 4 MG/ML Syringe IVPUSH ONE (12:49)
[2024-11-14 12:58] LABS: LACTIC ACID 1.5 mmol/L (0.4-2.0)
[2024-11-14 12:59] LABS: A/G RATIO 1.14; ALANINE AMINOTRANSFERASE,ALT 50 U/L (16-63); ALBUMIN 4.1 g/dL (3.4-5.0); ALKALINE PHOSPHATASE 94 U/L (46-116); ANION GAP 11.1 mmol/L (5-15); ASPARTATE AMNIOTRANSFERASE,AST 35 U/L (15-37); BILIRUBIN TOTAL 0.8 mg/dL (0.2-1.0); BLOOD UREA NITROGEN,BUN 17 mg/dL (7-18); C-REACTIVE PROTEIN < 0.50 mg/dL (<=0.50); CALCIUM 8.8 mg/dL (8.5-10.1); CARBON DIOXIDE,CO2 28 mmol/L (21-32); CHLORIDE,CL 101 mmol/L (98-107); ESTIMATED GFR 81 mL/min (>=60); GLUCOSE RANDOM 156 mg/dL (70-99); MAGNESIUM 1.7 mg/dL (1.8-2.4); POTASSIUM,K 4.1 mmol/L (3.5-5.1); PROTEIN TOTAL,TP 7.7 g/dL (6.4-8.2); SODIUM,NA 136 mmol/L (136-145)
[2024-11-14 13:00] LABS: D-DIMER QUANTITATIVE 0.45 mg/LFEU (<=0.58)
== END 2024-11-14 15:42 | disposition home or self-care (01) ==
LOC: VM.ED 12:20
DX: R07.89 Other chest pain (principal); I11.0 Hypertensive heart disease with heart failure; I50.9 Heart failure, unspecified; E11.9 Type 2 diabetes mellitus without complications; I25.10 Atherosclerotic heart disease of native coronary artery without angina pectoris; Z88.8 Allergy status to other drugs, medicaments and biological substances; Z88.1 Allergy status to other antibiotic agents; Z79.82 Long term (current) use of aspirin; Z79.890 Hormone replacement therapy; Z87.891 Personal history of nicotine dependence
CPT/HCPCS: 36415; 71045; 80053; 83605; 83735; 84484; 85025; 85379; 85610; 85730; 86140; 93005; 93010; 96374; 99284; 99285-25; A9270-GY; J2270

== ENCOUNTER 2025-02-05 10:03 | Emergency (ER) | payer MEDICARE, OTHER ==
[2025-02-05] MEDS ORDERED: Sodium Chloride 0.9% 10 ML Syringe FLUSH PRN (10:20)
[2025-02-05 10:35] LABS: BASOPHILS PERCENT AUTO 0.3 % (0.2-1.2); EOSINOPHILS ABSOLUTE AUTO 0.1 x10^3/uL (0.0-0.5); EOSINOPHILS PERCENT AUTO 1.6 % (0.0-4.0); HEMATOCRIT 46.9 % (40.0-52.0); HEMOGLOBIN 16.2 g/dL (14.0-18.0); IMMATURE GRAN ABSOLUTE AUTO 0.01 x10^3/uL (0.00-0.07); LYMPHOCYTES ABSOLUTE AUTO 1.7 x10^3/uL (1.0-4.8); LYMPHOCYTES PERCENT AUTO 24.6 % (25.0-50.0); MEAN CORPUSCULAR HEMOGLOBIN 30.3 pg (26.0-32.0); MEAN CORPUSCULAR HGB CONC 34.5 g/dL (32.0-36.0); MEAN CORPUSCULAR VOLUME 87.8 fL (78.0-93.0); MONOCYTES ABSOLUTE AUTO 0.7 x10^3/uL (0.0-0.8); MONOCYTES PERCENT AUTO 10.7 % (2.0-11.0); NEUTROPHILS ABSOLUTE AUTO 4.3 x10^3/uL (1.8-7.7); NEUTROPHILS PERCENT AUTO 62.7 % (50.0-80.0); PLATELET COUNT,PLT 324 x10^3/uL (130-400); RED BLOOD CELL COUNT 5.34 x10^6/uL (4.5-6.0); WHITE BLOOD CELL COUNT,WBC 6.9 x10^3/uL (4.0-10.0)
[2025-02-05 10:58] LABS: A/G RATIO 1.27; ALANINE AMINOTRANSFERASE,ALT 41 U/L (16-63); ALBUMIN 4.2 g/dL (3.4-5.0); ALKALINE PHOSPHATASE 93 U/L (46-116); ANION GAP 15.9 mmol/L (5-15); ASPARTATE AMNIOTRANSFERASE,AST 24 U/L (15-37); BILIRUBIN TOTAL 0.5 mg/dL (0.2-1.0); BLOOD UREA NITROGEN,BUN 22 mg/dL (7-18); C-REACTIVE PROTEIN < 0.50 mg/dL (<=0.50); CALCIUM 8.8 mg/dL (8.5-10.1); CARBON DIOXIDE,CO2 26 mmol/L (21-32); CHLORIDE,CL 99 mmol/L (98-107); CREATININE 1.4 mg/dL (0.70-1.30); ESTIMATED GFR 54 mL/min (>=60); GLUCOSE RANDOM 204 mg/dL (70-99); MAGNESIUM 1.8 mg/dL (1.8-2.4); POTASSIUM,K 3.9 mmol/L (3.5-5.1); PROTEIN TOTAL,TP 7.5 g/dL (6.4-8.2); SODIUM,NA 137 mmol/L (136-145)
== END 2025-02-05 12:27 | disposition home or self-care (01) ==
LOC: VM.ED 10:03
DX: I20.1 Angina pectoris with documented spasm (principal); I11.0 Hypertensive heart disease with heart failure; I50.9 Heart failure, unspecified; E11.9 Type 2 diabetes mellitus without complications; Z79.82 Long term (current) use of aspirin; Z79.899 Other long term (current) drug therapy; Z88.0 Allergy status to penicillin; Z88.8 Allergy status to other drugs, medicaments and biological substances
CPT/HCPCS: 36415; 71045; 80053; 83735; 84484; 85025; 86140; 93005; 93010; 99284; 99285